=== PATIENT | female | born 1960 | race Caucasian/White ===

== ENCOUNTER → 2018-08-16 | Outpatient (REF) ==
[~2018-08-16] MED LIST: ACE325 PO; ALB0.5 INH; ALB18R INH; ALB6.7R INH; ALBUTEROL; AMO500 PO; AUG875 PO; AZI250 PO; AZIT-101 PO; AZIT500T47 PO; BUDE10.2 IH; BUDRES INH; CITA10SO9 PO; COM14R INH; DUONEB INH; FLUINH INH; GUAI480S48 PO; HYDR25CA PO; IBUP200C72 PO; IBUP600T22 PO; LOR5 PO; LOR5/325 PO; MON10 PO; PER PO; PHEN120S16 PO; PHENA100 PO; PRE10 PO; PRE20 PO; ROBC PO; TRA50 PO; TRAM100T2 PO; TYLENOL; Z PACK
--- NOTE | 2018-08-16 14:21 | RADIOLOGY IMAGING REPORT ---
FACILITY: [facility] [place] PATIENT NAME: Leticia Marquez : 1960 MR: [id number] V: [id number] EXAM DATE: ORDERING PHYSICIAN: HANNAH BARRIOS TECHNOLOGIST: Location: [facility] Patient: Leticia Marquez : 1960 Visit/Account:[id number] Date of Sevice: 08/16/2018 Exam type: CHEST PA AND LAT History: Obstructive pattern on spirometry, shortness of breath Comparison: November 06, 2016. Findings: The lungs are free of acute effusions, infiltrates or edema. No evidence of a pneumothorax or pneumo mediastinum. The cardiac silhouette is normal in size. The trachea is in midline. IMPRESSION: 1. No acute cardiopulmonary process is seen Report Dictated By: Shilpa Edwards MD at 08/16/2018 2:16 PM Report E-Signed By: Shilpa Edwards MD at 08/16/2018 2:17 PM WSN:DIOR
== END ==
LOC: RESP 00:54 → EDSTATUS 10:00
PROVIDERS: ATTEND Nurse Practitioner
DX: R94.2 Abnormal results of pulmonary function studies (principal); R06.02 Shortness of breath
CPT/HCPCS: 71046; 94060; 94726; 94729